=== PATIENT | female | born 1990 | race African-American/Black ===

== ENCOUNTER 2018-05-10 11:34 | Emergency (ER) | payer OTHER ==
[~2018-05-10] VITALS: Ht 167.6 cm; Wt 95.0 kg
[2018-05-10] MEDS ORDERED: SINGULAIR10 MG PO (11:48)
[2018-05-10] MEDS ORDERED: AMOX/K CLAV875 M1 PO (11:49)
[2018-05-10 12:37] VITALS: BP 137/78
== END 2018-05-10 12:42 | disposition home or self-care (01) ==
LOC: ED 11:34
DX: M79.632 Pain in left forearm (principal); J45.909 Unspecified asthma, uncomplicated; W01.198A Fall on same level from slipping, tripping and stumbling with subsequent striking against other object, initial encounter; Y93.89 Activity, other specified; Y92.149 Unspecified place in prison as the place of occurrence of the external cause; Y99.0 Civilian activity done for income or pay